=== PATIENT | male | born 1940 | race Caucasian/White ===

== ENCOUNTER 2021-03-24 18:29 | Emergency (ER) | payer MEDICARE, BC ==
[2021-03-24] MEDS ORDERED: Ferrous Sulfate 325 MG Tab ONE ×2 (20:00→20:06)
[2021-03-24] MEDS ORDERED: Acetaminophen/HYDROcodone 325-5 MG Tab ONE (20:00)
--- NOTE | 2021-03-24 21:38 | ER ---
HISTORY OF PRESENT ILLNESS: An 80-year-old male who comes in with a friend with complaints of abdominal pain in the upper right quadrant that was very sharp and miserable on and off for the last day. He states that it was worse today after being out in the boat fishing and they were in some moderately rough water part of the day. He states it hurts more when he has any movement. He has not been nauseated and has not vomited. The patient has history of lung and liver cancer and has had a partial liver removal in the past. He is concerned that this could be part of a hernia from the incision from this previous surgery. The patient is on chemo for cancer, but states that he was recently told his platelets and hemoglobin were low, so they were holding the chemo for the last week or so. OBJECTIVE: GENERAL APPEARANCE: The patient is awake and alert. At this time, he denies any pain as long as he is sitting still. VITAL SIGNS: Reviewed. Blood pressure 125/57, temp 99.7, pulse 82, respirations 18, O2 sats 97% on room air. LUNGS: Reveal reduced air exchange throughout the lung teran. I do not hear any rales, wheezes, or rhonchi. ABDOMEN: Palpation of the abdomen reveals minimal discomfort involving the upper right quadrant just below the rib cage. There is no guarding. Bowel sounds are present. He does have a large-appearing incisional hernia involving the upper right quadrant from the previous surgery. SKIN: Warm and dry. LABORATORY STUDIES: Today include a CBC showing a hemoglobin of 7.3. The patient states this is fairly normal for him since he has been on chemo and the platelet count is 25. The patient again states this has been an issue with him for a while because of his cancer treatments. Comprehensive metabolic panel is unremarkable. Urine shows brown cloudy character, small amount of proteinuria, large amount of occult blood with just a few bacteria. IMAGING STUDIES: CT of the chest, abdomen, and pelvis were obtained. The patient does have lung nodules that are not new and a mass on the liver dome area, also thought to be not new. He does have a 6 mm kidney stone at the pelvic-ureter junction with mild or minimal hydronephrosis on the right side. Otherwise, no acute findings. DIAGNOSES: 1. Renal stone with mild hydronephrosis. 2. Chronic anemia due to cancer and associated chemotherapy treatments. 3. Thrombocytopenia, again chronic and due to cancer and associated treatments. TREATMENT PLAN: I will start the patient on ferrous sulfate 325 mg b.i.d. I will give him 2 tablets from the ER to take 1 tonight and 1 in the morning and then a script for a week's supply. I will give him Alexander tablets to use as needed for pain control. I advised the patient to take it easy and not be fishing tomorrow unless he is fishing from a dock. Activity seems to make his pain worse and they will be going home in 2 days. He is instructed to follow up with his primary care provider as soon as he gets back home. The patient does not want any further evaluation here or to be hospitalized, which I feel is reasonable due to his history. The patient was pain-free upon leaving other than he did have 1 minor episode of colicky type pain while waiting for test results tonight. KAYA/MODL /[id number]
--- NOTE | 2021-03-25 08:18 | CT ---
Date of Service: 03/24/21 Clinical Data: Abd pain URQ - increases with deep breathing UNENHANCED CHEST CT: Multislice acquisition through the chest without IV contrast was performed. There are multiple nodules noted in both lungs. The largest is within the right upper lobe and measures 2.9 cm in diameter. These are very suspicious for pulmonary metastases. There is a small right pleural effusion. No left pleural effusion The heart size is normal. There are coronary artery calcifications. No grossly enlarged lymph nodes. There is degenerative disk disease through the thoracic spine. IMPRESSION: Multiple pulmonary nodules highly suspicious for pulmonary metastases. Right pleural effusion. No other significant findings. UNENHANCED ABDOMEN AND PELVIC CT: Multislice acquisition through the abdomen and pelvis without IV or oral contrast was performed. No priors. The patient is status post partial hepatectomy. There is a low-density lesion within the dome of the liver most likely representing neoplasm. No biliary duct dilatation. The spleen appears normal. There are splenic collaterals medial to the spleen suggesting portal hypertension. The pancreas is atrophic, otherwise unremarkable. The right and left adrenals appear normal. There atrophy of both kidneys. There is a 6 mm calculi located in the right renal collecting system at the ureteropelvic junction. There is mild hydronephrosis on the right. There is a benign-appearing cyst in the anterior aspect of the left kidney. The bladder is partially fluid filled. It appears normal. No evidence of appendicitis. There is free fluid throughout the peritoneal cavity consistent with ascites. No free air. No dilated loops of bowel. There is mural thickening in the region of the splenic flexure. The patient is status post right partial hepatectomy with an anastomosis. No evidence of obstruction associated with this. No adenopathy. 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 There is degenerative disk disease throughout the lower thoracic and lumbar spine. There is mild compression deformity of the superior endplate of T12, age indeterminate. No focal lytic or blastic bone lesions. [id number] [facility]
== END 2021-03-24 20:30 | disposition home or self-care (01) ==
LOC: LB.ED 18:29
DX: N13.2 Hydronephrosis with renal and ureteral calculous obstruction (principal); D69.6 Thrombocytopenia, unspecified
CPT/HCPCS: 36415; 71250; 74176; 80053; 81001; 85025; 99284; A9270